=== PATIENT | female | born 1990 | race American Indian/Alaskan Native ===

== ENCOUNTER 2016-11-19 11:58 | Emergency (ER) | payer OTHER ==
[2016-11-19 12:11] VITALS: BP 115/92
[2016-11-19] MEDS ORDERED: NORCO 7.5/325 PO ONE (12:27)
[2016-11-19] MEDS ORDERED: MARCAINE 0.5% INFILTRATI ONE (12:27)
[2016-11-19] MEDS ORDERED: BOOSTRIX IM ONE (12:27)
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
== END 2016-11-19 13:34 | disposition home or self-care (01) ==
LOC: ED 11:58
DX: S01.81XA Laceration without foreign body of other part of head, initial encounter (principal); W50.0XXA Accidental hit or strike by another person, initial encounter; Y93.89 Activity, other specified; Y99.9 Unspecified external cause status; Y92.89 Other specified places as the place of occurrence of the external cause
CPT/HCPCS: 90471; 90715

== ENCOUNTER 2016-12-06 12:38 | Emergency (ER) | payer OTHER ==
[2016-12-06 12:50] VITALS: BP 111/63
--- NOTE | 2016-12-06 13:55 | Emergency Department Report ---
Suture/Staple Removal - HPI Chief Complaint: Laceration/Recheck/Suture Stated Complaint: STITCHES REMOVED When Sutures or [place] Placed: >14 Days Ago Wound Location: forehead ED Review of Systems ROS: Stated complaint: STITCHES REMOVED Other details as noted in HPI Constitutional: denies: chills, fever Eyes: denies: eye pain, eye discharge, vision change ENT: denies: ear pain, throat pain Respiratory: denies: cough, shortness of breath, wheezing Cardiovascular: denies: chest pain, palpitations Endocrine: no symptoms reported Gastrointestinal: denies: abdominal pain, nausea, diarrhea Genitourinary: denies: urgency, dysuria, discharge Musculoskeletal: denies: back pain, joint swelling, arthralgia Skin: denies: rash, lesions Neurological: denies: headache, weakness, paresthesias Psychiatric: denies: anxiety, depression Hematological/Lymphatic: denies: easy bleeding, easy bruising ED Past Medical Hx - Past Medical History Previous Medical History?: Yes Additional medical history: PREECLAMPSIA W/ - Surgical History Past Surgical History?: Yes Additional Surgical History: c-sec x1 - Social History Smoking Status: Never Smoker Substance Use Type: None - Medications Home Medications: Home Medications Medication Instructions Recorded Confirmed Last Taken Type HYDROcodone/APAP 7.5-325 [[place] 1 each PO Q8HR PRN #12 tablet 11/19/16 Unknown Rx 7.5/325] Suture Removal Exam - Exam General: Vital signs noted. No distress. Alert and acting appropriately. Wound: No Pathologic Erythema, No Tenderness, No Drainage, No Pus, No Wound Dehiscence Other Systems: All other systems reviewed and are unremarkable. ED Course Vital Signs 12/06/16 12:47 Temperature 98.2 F Pulse Rate 73 Respiratory 14 Rate Blood Pressure 111/63 O2 Sat by Pulse 100 Oximetry ED Recheck MDM - Core Measures AMI Core Measures Followed: Yes - Differential Diagnosis Suture/Staple Removal - Medical Decision Making 3sutures removed. incision is clean and intact. patient tolerated procedure well. patient is stable, neurologically intact and in no acute distress. Critical care attestation.: If time is entered above; I have spent that time in minutes in the direct care of this critically ill patient, excluding procedure time. ED Disposition Clinical Impression: Suture check Disposition: DISCHARGED TO HOME OR SELFCARE Is pt being admited?: No Does the pt Need Aspirin: No Condition: Stable Instructions: Suture Removal (ED) Referrals: PRIMARY CARE, [Primary Care Provider] - 3-5 Days
== END 2016-12-06 14:30 | disposition home or self-care (01) ==
LOC: ED 12:38
DX: S01.81XD Laceration without foreign body of other part of head, subsequent encounter (principal); Z48.02 Encounter for removal of sutures